=== PATIENT | male | born 1965 | race African-American/Black ===

== ENCOUNTER 2019-08-16 15:34 | Inpatient (IN) ==
[2019-08-16] MEDS ORDERED: guaiFENesin/DM ER 600-30 MG TABLET PO PRN (17:18)
[2019-08-16] MEDS ORDERED: hydrALAZINE 20 MG/1 ML VIAL IV PRN (17:18)
[2019-08-16] MEDS ORDERED: LACTULOSE 20 GM/30 ML UDCUP PO PRN (17:18)
[2019-08-16] MEDS ORDERED: BISACODYL 5 MG TABLET PO PRN (17:18)
[2019-08-16] MEDS ORDERED: DOCUSATE SODIUM 100 MG CAPSULE PO PRN (17:18)
[2019-08-16] MEDS ORDERED: GLUCAGON 1 MG VIAL IM PRN (17:18)
[2019-08-16] MEDS ORDERED: CALCIUM CARBONATE CHEW 500 MG TABLET PO PRN (17:18)
[2019-08-16] MEDS ORDERED: diphenhydrAMINE CAP 25 MG CAPSULE PO PRN (17:18)
[2019-08-16] MEDS ORDERED: SODIUM CHLORIDE 0.9% 1,000 ML IV PRN (17:18)
[2019-08-16] MEDS ORDERED: ALUMINUM/MAGNES/SIMETH MAX STR 30 ML UDCUP PO PRN (17:18)
[2019-08-16] MEDS ORDERED: ACETAMINOPHEN 325 MG TABLET PO PRN (17:18)
[2019-08-16] MEDS ORDERED: SIMETHICONE CHEW 125 MG TABLET PO PRN (17:18)
[2019-08-16] MEDS ORDERED: DEXTROSE 10% 250 ML BAG IV PRN (17:18)
[2019-08-16] MEDS ORDERED: MORPHINE 4 MG/1 ML VIAL IV PRN (17:18)
[2019-08-16 18:54] LABS: Hepatitis B Surface Ab Result Negative; Hepatitis B Surface Ag Result Negative (Negative)
[2019-08-16 19:10] LABS: Hepatitis B Core IgM Quant 0.13 Index; Hepatitis B Surface Ag Quant 0.19 Index; Hepatitis B Surface Ag Result Negative (Negative); Hepatitis C Virus Ab Result Negative (Negative)
[2019-08-16 23:54] LABS: Amorphous Crystals,Urine Occasional /HPF (Few); Apearance,Urine CLEAR (Clear); Bilirubin,Urine Negative (Negative); Blood, Urine Small mg/dL (Negative); Glucose,Urine (UA) 50 mg/dL (Negative); Ketones,Urine Negative (Negative); Nitrite,Urine Negative (Negative); Protein,Urine >=500 MG/DL; RBC,Urine 2 /HPF (0-4); Squamous Epithelial Cell,Urine Occasional /HPF (0-10); Urine Color Yellow (Yellow); Urine Specific Gravity 1.011 (1.001-1.035); Urine Urobilinogen < 2.0 EU/DL (0.2-1.0); WBC,Urine 3 /HPF (0-6)
[2019-08-17] MEDS: MORPHINE 4 MG/1 ML VIAL IV SCH ×5 (06:06→19:05)
[2019-08-17 06:51] LABS: Basophils % 0.5 % (0.0-0.8); Eosinophils # 0.3 10*3/uL (0.0-0.87); Eosinophils % 3.1 % (0.00-10.9); Hematocrit 25.9 VOL% (42.0-52.0); Hemoglobin 8.1 GM/DL (14.0-18.0); Immature Granulocytes % 0.4 %; Immature Granulocytes Absolute 0.03 #; Lymphocytes # 1.7 10*3/uL (1.4-4.0); Lymphocytes % 20.9 % (21.2-54.2); Mean Corpuscular HGB Conc 31.3 GM/DL (32-36); Mean Corpuscular Volume 91.5 FL (87-102); Mean Platelet Volume 10.7 FL (9.6-12.0); Monocytes % 8.9 % (1.7-12.7); Neutrophils % 66.2 % (38.7-73.9); Platelet Count 299 T/CUMM (130-400); Red Blood Count 2.83 MC/CUMM (3.8-5.5); Red Cell Distribution Width 13.4 % (9.3-17.3); White Blood Count 8.1 T/CUMM (4-12)
[2019-08-17 06:58] LABS: INR 1.1; PT Patient Result 11.5 SECS (9.8-11.9)
[2019-08-17 07:17] LABS: Folate 5.2 NG/ML (5.4-24.0)
[2019-08-17 07:23] LABS: % Iron Saturation 50.9 % (18-50); Ferritin 526.9 ng/ml (26-388)
[2019-08-17 07:28] LABS: Risk Ratio 5.79; Thyroid Stimulating Hormone 2.88 uIU/ml (0.358-3.74); VLDL CHOLESTEROL 36.4 MG/DL
[2019-08-17 07:33] LABS: Alanine Aminotransferase 9 U/L (16-61); Alkaline Phosphatase 47 U/L (45-117); Aspartate Amino Transferase 9 U/L (0-37); Bilirubin,Total < 0.39 MG/DL (0.2-1.0); Calcium 8.9 MG/DL (8.5-10.1); Total Protein 7.8 G/DL (6.4-8.3)
[2019-08-17 07:34] LABS: Blood Urea Nitrogen 88 MG/DL (7-18); Estimated Glom Filtration Rate 3 ML/MIN; Glucose 89 MG/DL (74-106)
[2019-08-17 07:35] LABS: Albumin 3.6 G/DL (3.4-5.0)
[2019-08-17] MEDS ORDERED: ceFAZolin 2,000 MG in PREMIX 1 EACH IV ONE (09:35)
[2019-08-17] MEDS ORDERED: HEPARIN 5,000 UNIT/1 ML VIAL ONE (11:30)
[2019-08-17] MEDS ORDERED: BUPIVACAINE 0.25% /EPI 10 ML VIAL ONE (11:30)
[2019-08-17] MEDS ORDERED: LIDOCAINE 1%/EPI INJ 20 ML VIAL ONE (11:31)
[2019-08-17] MEDS ORDERED: propofoL 200 MG/20 ML VIAL IV ONE (12:41)
[2019-08-17] MEDS ORDERED: fentaNYL 100 MCG/2 ML VIAL ONE (12:41)
[2019-08-17] MEDS ORDERED: MIDAZOLAM 2 MG/2 ML VIAL ONE (12:41)
[2019-08-17] MEDS ORDERED: LIDOCAINE 2% 5 ML VIAL ONE (12:41)
[2019-08-17] MEDS: PANTOPRAZOLE 40 MG TABLET PO SCH (14:18)
[2019-08-17] MEDS ORDERED: HEPARIN 10,000 UNIT/10 ML VIAL IV SCH (17:00)
[2019-08-17] MEDS ORDERED: ONDANSETRON 4 MG/2 ML VIAL IV PRN (20:05)
[2019-08-17] MEDS ORDERED: MORPHINE 4 MG/1 ML VIAL IV PRN (20:05)
[2019-08-17] MEDS: COENZYME Q10 100 MG CAPSULE PO SCH (21:22)
[2019-08-17] MEDS: ROSUVASTATIN 20 MG TABLET PO SCH (21:23)
[2019-08-17] MEDS: HEPARIN 5,000 UNIT/1 ML VIAL SUBCUT SCH (21:23)
[2019-08-18 04:37] LABS: Basophils % 0.3 % (0.0-0.8); Eosinophils # 0.1 10*3/uL (0.0-0.87); Eosinophils % 1.8 % (0.00-10.9); Hematocrit 23.5 VOL% (42.0-52.0); Hemoglobin 7.2 GM/DL (14.0-18.0); Immature Granulocytes % 0.5 %; Immature Granulocytes Absolute 0.04 #; Lymphocytes # 1.2 10*3/uL (1.4-4.0); Mean Corpuscular HGB Conc 30.6 GM/DL (32-36); Mean Corpuscular Volume 92.5 FL (87-102); Mean Platelet Volume 10.7 FL (9.6-12.0); Monocytes % 10.8 % (1.7-12.7); Neutrophils % 69.6 % (38.7-73.9); Platelet Count 191 T/CUMM (130-400); Red Blood Count 2.54 MC/CUMM (3.8-5.5); Red Cell Distribution Width 13.2 % (9.3-17.3); White Blood Count 7.3 T/CUMM (4-12)
[2019-08-18 05:51] LABS: Albumin 3.3 G/DL (3.4-5.0); Calcium 8.6 MG/DL (8.5-10.1); Osmolality,Calculated 289.8 MOS/KG (273-304)
[2019-08-18] MEDS ORDERED: SODIUM CHLORIDE 0.9% 1,000 ML IV PRN (06:44)
[2019-08-18] MEDS: PANTOPRAZOLE 40 MG TABLET PO SCH (08:50)
[2019-08-18] MEDS: HEPARIN 5,000 UNIT/1 ML VIAL SUBCUT SCH ×2 (08:50→21:54)
[2019-08-18 19:08] LABS: Hematocrit 30.2 VOL% (42.0-52.0)
[2019-08-18 19:14] LABS: Hemoglobin 9.7 GM/DL (14.0-18.0)
[2019-08-18] MEDS: COENZYME Q10 100 MG CAPSULE PO SCH (21:54)
[2019-08-18] MEDS: ROSUVASTATIN 20 MG TABLET PO SCH (21:54)
[2019-08-19 04:54] LABS: Basophils % 0.5 % (0.0-0.8); Eosinophils # 0.2 10*3/uL (0.0-0.87); Eosinophils % 2.2 % (0.00-10.9); Hematocrit 27.6 VOL% (42.0-52.0); Hemoglobin 8.9 GM/DL (14.0-18.0); Immature Granulocytes % 0.4 %; Immature Granulocytes Absolute 0.03 #; Lymphocytes # 1.6 10*3/uL (1.4-4.0); Mean Corpuscular HGB Conc 32.2 GM/DL (32-36); Mean Corpuscular Volume 88.7 FL (87-102); Mean Platelet Volume 11.2 FL (9.6-12.0); Monocytes % 11.8 % (1.7-12.7); Neutrophils % 64.1 % (38.7-73.9); Platelet Count 139 T/CUMM (130-400); Red Blood Count 3.11 MC/CUMM (3.8-5.5); Red Cell Distribution Width 13.7 % (9.3-17.3); White Blood Count 7.6 T/CUMM (4-12)
[2019-08-19 05:24] LABS: Albumin 3.2 G/DL (3.4-5.0); Calcium 8.6 MG/DL (8.5-10.1); Osmolality,Calculated 276.1 MOS/KG (273-304)
[2019-08-19 08:54] VITALS: BP 132/83
[2019-08-19] MEDS: PANTOPRAZOLE 40 MG TABLET PO SCH (10:00)
[2019-08-19] MEDS: HEPARIN 5,000 UNIT/1 ML VIAL SUBCUT SCH (10:00)
== END 2019-08-19 12:08 | disposition home or self-care (01) | DRG 673 ==
LOC: N.3E 16:33 → SUATTDRO 16:33
PROVIDERS: ADMIT Nurse Practitioner Family; ATTEND Internal Medicine